=== PATIENT | male | born 1985 | race Caucasian/White ===

== ENCOUNTER 2019-12-10 13:53 | Emergency (ER) | payer OTHER, SELFPAY ==
[2019-12-10 13:54] VITALS: BP 126/79; PULSE 116; RESP 20; TEMP 36.8; O2SAT 96; BMI 37.5
--- NOTE | 2019-12-10 14:12 | XR_ITS ---
PROCEDURE: XR HAND RT MIN 3V CLINICAL INDICATION: DOG BITE Posttraumatic pain COMPARISON: No exams were available for comparison FINDINGS: Soft tissue defect is present at the tip and ulnar aspect of the 2nd digit consistent with laceration. No associated fracture or radiopaque foreign body. IMPRESSION: Soft tissue laceration at the distal aspect of the 2nd finger without associated bony anomaly Dictated by: Dominguez Ruvalcaba MD 12/10/2019 15:07 Electronically signed by Dominguez Ruvalcaba MD in [place] 12/10/2019 15:07
--- NOTE | 2019-12-10 14:19 | [facility].EDGENADL ---
ED Disposition Clinical Impression: Dog bite, hand Qualifiers: Encounter type: initial encounter Laterality: right Qualified Code(s): S61.451A - Open bite of right hand, initial encounter; W54.0XXA - Bitten by dog, initial encounter Nailbed laceration, finger Qualifiers: Encounter type: initial encounter Qualified Code(s): S61.319A - Laceration without foreign body of unspecified finger with damage to nail, initial encounter Disposition: Home, Self-Care Condition on Discharge: Fair Instructions: DI for Dog Bite, DI for Nail Bed Injury Additional Instructions: Follow-up with orthopedics next week for reevaluation. Gently remove the bandage and splint each day and gently cleanse with soap and water, reapply bandage and splint. Augmentin as prescribed. Ibuprofen and elevate hand for pain. Additional instructions for HAND LACERATION: Return if any signs of infection including increasing pain, pus drainage, swelling, redness, red streaks, or fever. Prescriptions: Amoxicillin/Potassium Clav [Augmentin 875-125 Tablet] 1 tab PO Q12H #14 tab Transmission Status: Pending to [id number] Referrals: Sirena Salcedo MD [Physician] - - Critical Care Critical Care Time: No Attestation: On 12/10/19, the high probability of a clinically significant, sudden or life threatening deterioration of the following system(s) required my full and direct attention, intervention and personal management. The time I documented below is in addition to time spent performing reported procedures but includes the following listed in this critical care notation. Medical Decision Making - Alex Inquiry Pt receiving controlled substance: No Vital Signs: 12/10/19 13:54 Temperature 98.2 F Temperature Source Oral Pulse Rate [Right] 116 H Respiratory Rate 20 Blood Pressure [Right Arm] 126/79 Blood Pressure Mean [Right Arm] 94 02 Sat by Pulse Oximetry 96 Orders (Tests/Meds): ED MEDICATIONS Discontinued Medications Generic Name Dose Route Start Last Admin Trade Name Freq PRN Reason Stop Dose Admin Amoxicillin/Clavulanate Potassium 1 each 12/10/19 15:11 Augmentin 500mg Tablet PO 12/10/19 15:12 ONCE ONE Protocol Bupivacaine HCl 50 mg 12/10/19 15:00 Bupivacaine 0.5% 10ml Vial IJ 12/10/19 15:01 ONCE ONE - Radiology Data #1 Image(s): Finger(s)/Thumb Image Reviewed: Yes I reviewed the patient's radiology image, Yes I have reviewed radiologist's interpretation PROCEDURE: XR HAND RT MIN 3V CLINICAL INDICATION: DOG BITE Posttraumatic pain COMPARISON: No exams were available for comparison FINDINGS: Soft tissue defect is present at the tip and ulnar aspect of the 2nd digit consistent with laceration. No associated fracture or radiopaque foreign body. IMPRESSION: Soft tissue laceration at the distal aspect of the 2nd finger without associated bony anomaly Dictated by: Dominguez Ruvalcaba MD 12/10/2019 15:07 Electronically signed by Dominguez Ruvalcaba MD in [place] 12/10/2019 15:07 General Adult HPI - General Chief complaint: Animal Bite Stated complaint: ao dog fight and got bit right hand Time Seen by Provider: 12/10/19 14:19 Mode of Arrival: Ambulatory Limitations: No Limitations Description of Symptoms (Recalled from ER Triage Doc. by RN): PT STATES RIGHT BEFORE ARRIVAL PT WAS BIT BY A DOG OF AN UNKNOWN BREED, PT STATES THE DOG DID HAVE TAGS AND A RABIES TAG. PT HAS PART OF HIS LEFT RING FINGER REMOVED. PT TDAP IS UTD. - History of Present Illness HPI narrative: Patient was bit by a dog today. The dog is in captivity, in fact is at a brine maker's office now. He has an injury to his hands. His main injuries to his right index finger where he has a soft tissue avulsion of the tip. His nail was also torn. He has some minor abrasions and lacerations scattered on both hands otherwise. Tetanus immunization status is up-to-date. Police have been here and taken report
[2019-12-10 15:45] VITALS: BP 124/87; PULSE 87; RESP 20; TEMP 36.8; O2SAT 98
== END 2019-12-10 15:46 | disposition home or self-care (01) ==
PROVIDERS: Emergency Provider Emergency Medicine
DX: S61.451A Open bite of right hand, initial encounter (principal); S61.310A Laceration without foreign body of right index finger with damage to nail, initial encounter; W54.0XXA Bitten by dog, initial encounter; Y92.89 Other specified places as the place of occurrence of the external cause; F17.210 Nicotine dependence, cigarettes, uncomplicated
CPT/HCPCS: 11760; 73130; 96372; 99283